=== PATIENT | male | born 1960 | race Caucasian/White ===

== ENCOUNTER 2017-05-10 15:41 | Observation (INO) | payer MEDICARE ==
[2017-05-10 16:08] LABS: BASOPHILS 0.5 % (0-2); EOSINOPHILS 8.5 % (0-7); HEMATOCRIT 41.5 % (42.0-54.0); HEMOGLOBIN 14.4 g/dL (13.5-17.5); IMMATURE GRANULOCYTES 0.1 % (0-5); LYMPHOCYTES 24.5 % (15-50); MCH 31.9 pg (26.0-34.0); MCHC 34.7 g/dL (31.0-37.0); MEAN PLATELET VOLUME 10.9 fL (7.4-10.4); MONOCYTES 8.5 % (2-11); NEUTROPHILS 57.9 % (40-80); PLATELET COUNT 161 10x3/uL (130-400); RBC 4.51 10x6/uL (4.20-6.10); RDW 13.3 % (11.5-14.5); WBC 8.1 10x3/uL (4.8-10.8)
[2017-05-10 16:19] LABS: ALBUMIN 3.6 g/dL (3.4-5.0); ALKALINE PHOSPHATASE 106 U/L (46-116); ALT (SGPT) 38 U/L (10-68); BILIRUBIN - TOTAL 0.55 mg/dL (0.2-1.3); CALC OSMOLALITY 281 mosm/kg (275-300); CALCIUM 8.6 mg/dL (8.5-10.1); CARBON DIOXIDE 26.2 mmol/L (21.0-32.0); CHLORIDE - SERUM 103 mmol/L (98-107); GLUCOSE 153 mg/dL (74-106); POTASSIUM - SERUM 3.7 mmol/L (3.5-5.1); PROTEIN - SERUM 7.3 g/dL (6.4-8.2); SODIUM 139 mmol/L (136-145); UREA NITROGEN 15 mg/dL (7-18); eGFR NON AFRICAN AMERICAN 82 mL/min (90-120)
[2017-05-10 16:30] LABS: CHOL - HDL RATIO 5.5 ratio (2.3-4.9); CHOLESTEROL, TOTAL 138 mg/dL (0-200); CKMB 2.1 U/L (0.0-3.6); CREATINE KINASE 202 UL (21-232); HDL CHOLESTEROL 25 mg/dL (32-96); LDL CHOLESTEROL 66 mg/dL (0-100); LDL-HDL RATIO 2.6 ratio (1.5-3.5); TRIGLYCERIDE 237 mg/dL (30-200)
[2017-05-10 16:43] LABS: TROPONIN-I < 0.017 ng/mL (0.000-0.060)
--- NOTE | 2017-05-10 18:20 | NUR ---
TRANSFER FROM ER BY W/C. EDITHINTED TO ROOM. CALL LIGHT IN REACH. WILL CONT. PLAN OF CARE.
[2017-05-10 18:47] VITALS: BP 105/73
[2017-05-10] MEDS ORDERED: NEXIUM20 MG PO (18:54)
[2017-05-10] MEDS ORDERED: NEURONTIN600 MG PO ×2 (18:55)
[2017-05-10] MEDS ORDERED: ABILIFY10 MG PO (18:57)
[2017-05-10] MEDS ORDERED: MINIPRESS1 MG PO (18:57)
[2017-05-10] MEDS ORDERED: KLONOPIN1 MG PO ×2 (18:58→18:59)
[2017-05-10] MEDS ORDERED: LIPITOR40 MG PO (18:59)
[2017-05-10] MEDS ORDERED: PROPRANOLOL HCL20 MG PO (19:00)
[2017-05-10] MEDS ORDERED: ZOLOFT50 MG PO (19:01)
[2017-05-10] MEDS ORDERED: KEPPRA500 MG PO ×2 (19:02)
--- NOTE | 2017-05-10 19:50 | NUR ---
PT C/O MIDSTERNAL CHEST PAIN, RATES @ 6/10 ON PAIN SCALE. NITRO 0.4 MG SL X1 GIVEN.
[2017-05-10 20:45] VITALS: BP 92/55
--- NOTE | 2017-05-10 21:30 | NUR ---
PT STATES HAVING CHEST PAIN, RATES @ 6/10 ON PAIN SCALE. NITRO 0.4MG SL X1 GIVEN. AFTER 5 MIN PT REPORTS PAIN @ A 2/10 ON PAIN SCALE. WILL MONITOR.
[2017-05-10 22:29] LABS: CKMB 1.3 U/L (0.0-3.6); CREATINE KINASE 152 UL (21-232)
[2017-05-10 22:39] LABS: TROPONIN-I < 0.017 ng/mL (0.000-0.060)
--- NOTE | 2017-05-10 22:47 | NUR ---
PT REPORTS HAVING CHEST PAIN, RATES @ 8/10 ON PAIN SCALE. PT REQIUESTS A "PAIN SHOT". EXPLAINED TO PT HE ONLY HAS NTG ORDERED. PT STATES HE DOESNT FEEL THE NTG IS HELPING. CALL TO DR BARRIOS. ORDER RECEIVED FOR NORCO 7.5/325 MG PO Q4H PRN PAIN. PT UPDATED ON POC AND VERBALIZED UNDERSTANDING.
[2017-05-11] VITALS (7 sets, daily range): BP systolic 92–116; BP diastolic 57–74; BMI 29.4
[2017-05-11 04:51] LABS: CKMB 1.7 U/L (0.0-3.6); CREATINE KINASE 156 UL (21-232); TROPONIN-I < 0.017 ng/mL (0.000-0.060)
[2017-05-11 10:14] LABS: TROPONIN-I < 0.017 ng/mL (0.000-0.060)
[2017-05-11 10:18] LABS: CREATINE KINASE 291 UL (21-232)
--- NOTE | 2017-05-11 10:30 | NUR ---
LEAVING FOR STRESS TEST BY W/C. TELEMETRY SR. IV PATENT. WILL CONT. PLAN OF CARE.
--- NOTE | 2017-05-11 12:24 | NUR ---
ECHO DONE AT BS. WILL MONITOR.
--- NOTE | 2017-05-11 20:30 | NUR ---
LYING QUIETLY ON BEDSIDE ROUNDS, AWAKE AND ALERT, INITIAL ASSESSMENT JUST COMPLETED AND RECORDED PER FLOW SHEET. LEFT FOREARM PIV PATENT WITH NS @ 100 ML/HR, SITE CLEAR OF REDNESS OR EDEMA. REPORTS SOME DISCOMFORT IN CHEST REGION BUT NOT UNBEARABLE. NOTE THAT PT'S AFFECT IS S/W FLAT. ON O2 @ 2L, NO RESPIRATORY DISTRESS NOTED. WILL CONT TO MONITOR.
--- NOTE | 2017-05-12 00:05 | NUR ---
HAD BEEN C/O OF INCREASED PAIN IN CHEST AROUND 2200. GIVEN NORCO 1 TAB PER PRN ORDER, WILL MONITOR FOR AFFECT.
[2017-05-12 03:53] VITALS: BP 108/72
--- NOTE | 2017-05-12 06:23 | NUR ---
UP A SHORT TIME, STATED HE WAS GOING HOME AND WANTED TO TAKE A SHOWER. IV UNHOOKED AND IV SITE COVERED. TOOK SHOWER AND CLEAN CLOTHES PUT ON. HAS DENIED ANY FURTHER CO'S OF PAIN. WILL CONT WITH CURRENT PLAN OF CARE
--- NOTE | 2017-05-12 07:43 | NUR ---
ASSESSMENT DONE. DENIES NEEDS.
[2017-05-12 08:00] VITALS: BP 100/61
--- NOTE | 2017-05-12 09:24 | NUR ---
RESTS IN BED WITH EYES CLOSED. NO S/S DISCOMFORTS NOTED. WILL MONITOR.
--- NOTE | 2017-05-12 12:00 | NUR ---
FOR DISCHARGE: WHEN QUESTIONED PATIENT IF HE WANTED THE FLU SHOT FOR DISCHARGE, HE STATES THAT HE IS COUGHING A LOT AND DOES NOT WANT TO AGGIVATE IT. HE STATES THAT HE WILL FOLLOW UP WITH HIS PRIMARY CARE DOCTOR ON THIS.
--- NOTE | 2017-05-12 12:38 | NUR ---
DC GIVEN TO PT
--- NOTE | 2017-05-12 13:06 | NUR ---
DC HOME PER PERSONAL CAR
--- NOTE | 2017-05-13 12:46 | EC ---
PATIENT:LELIA ROBLERO DATE OF SERVICE: 05/10/17 SEX: M MEDICAL RECORD: [id number] DATE OF : 62 LOCATION:D.M2 D.211 AGE OF PATIENT: 56 ADMISSION DATE: 05/10/17 REFERRING PHYSICIAN: INTERPRETING PHYSICIAN: PADILLA BARRIOS MD ECHOCARDIOGRAM REPORT ECHO CHARGES 4 ECHO COMPLETE CLINICAL DIAGNOSIS: CHEST PAIN/ NAUSEA HX OF SEIZURES ECHOCARDIOGRAPHIC MEASUREMENTS (adult normal given) AC root (d.<3.7cm) 3.9 cm LV Septum d (<1.2 cm> 1.4 cm Valve Excursion 2.3 cm LV Septum (systole) 1.7 cm Left Atria (s.<4.0cm> 3.2 cm LVPW d(<1.2cm) 1.4 cm RV (d.<2.3cm) 3.8 cm LVPW (sytole) 1.7 cm LV diastole(<5.6CM) 5.1 cm MV E-F(>70mm/sec) cm LV systole 3.6 cm LVOT Diameter 2.2 cm MV exc.(>10mm) 2.0 cm Est.ejection fraction (50-75%) % Pericardial Effusion N DOPPLER: LVIT cm/sec A 80.0 cm/sec E 103 cm/sec LA cm/sec RVSP 23 mmHg LVOT 127 cm/sec AOP1/2T m/s Asc. Ao 140 cm/sec RVOT 96 cm/sec RA cm/sec PA 116 cm/sec AV Gradient Peak 7.89 mmHg AV Mean 4.47 mmHg AV Area 3.4 cm MV Gradient Peak 3.75 mmHg MV Mean 1.36 mmHg MV Area cm COMMENTS: Greens Laborer: 2 AMANDA MONTOYA Awning Hanger Helper: 4 Dr. Barrios TAPE# PACS DATE OF SERVICE: 05/12/2017 Transthoracic Echocardiogram FINDINGS: 1. Left ventricle shows evidence of mild concentric left ventricular hypertrophy with normal inflow characteristics. The ejection fraction is 65%. There is no regional wall motion abnormalities. 2. The mitral valve has normal structure, normal function without significant regurgitation. ECHOCARDIOGRAM REPORT [id number] LELIA ROBLERO 3. The right ventricle is moderately dilated with normal function. 4. The aortic valve is structurally normal and normal function. 5. The left atrium has normal size and normal function. 6. The pericardium appears to be normal without pericardial effusion. 7. Pulmonic valve is grossly normal. 8. The right atrium has normal size and normal function. 9. The tricuspid valve has mild tricuspid regurgitation with normal right ventricular pressures. In conclusion, the patient has evidence of mild hypertensive heart disease without significant changes in function or valvular status. TRANSINT:[id number] Voice Confirmation ID: [id number] DOCUMENT ID: [id number] PADILLA BARRIOS MD at 1246 CC: [id number] DICTATION DATE: 05/12/17 075 SWEAT BAND SEWER: 05/12/17 0922 DIS IN 05/12/17 [facility] [address] [place] [address]
--- NOTE | 2017-05-13 12:49 | ST ---
PATIENT:LELIA ROBLERO MEDICAL RECORD: [id number] SEX: M [facility] ORDER #: ADMISSION DATE: 05/10/17 AGE OF PATIENT: 56 REFERRING PHYSICIAN: INTERPRETING PHYSICIAN: PADILLA BARRIOS MD DATE OF SERVICE: 05/11/2017 Lexiscan Stress PROCEDURE IN DETAIL: The patient brought to the stress lab where he was placed in supine position on the stress table. The patient underwent a standard Lexiscan stress test without any difficulty where a 12 mCi of sestamibi was injected after appropriate Lexiscan protocol at rest and stress. The stress was 31.1 mCi sestamibi. The gated and SPECT imaging showed that the patient has preserved LV systolic function. No evidence of ischemia. The ejection fraction is normal at 59% and there were no evidences of photopenia or ischemia. This is a negative stress test for inducible ischemia. TRANSINT:[id number] Voice Confirmation ID: [id number] DOCUMENT ID: [id number] PADILLA BARRIOS MD at 1249 CC: [id number] DICTATION DATE: 05/11/17 1600 LIMOUSINE DRIVER: 05/12/17 0105 DIS IN 05/12/17 [facility] [address] [place] [address]
== END 2017-05-12 13:07 | disposition home or self-care (01) ==
LOC: D.ER 15:41 → D.M2 17:53 → OBSVTIME 17:53 → D.M2 05-12 13:07
PROVIDERS: Emergency Medicine; ADMIT Family Medicine
DX: R07.9 Chest pain, unspecified (principal); J44.9 Chronic obstructive pulmonary disease, unspecified; F41.9 Anxiety disorder, unspecified; F32.9 Major depressive disorder, single episode, unspecified

== ENCOUNTER 2017-06-02 17:06 | Emergency (ER) | payer MEDICARE ==
[2017-05-11 13:13] VITALS: BMI 29.4
[~2017-06-02 17:06] MED LIST: ABILIFY10 MG PO; KEPPRA500 MG PO; KLONOPIN1 MG PO; LIPITOR40 MG PO; MINIPRESS1 MG PO; NEURONTIN600 MG PO; NEXIUM20 MG PO; PROPRANOLOL HCL20 MG PO; ZOLOFT50 MG PO
[2017-06-02 18:39] LABS: BASOPHILS 0.3 % (0-2); HEMATOCRIT 43.6 % (42.0-54.0); HEMOGLOBIN 15.1 g/dL (13.5-17.5); IMMATURE GRANULOCYTES 0.3 % (0-5); LYMPHOCYTES 15.9 % (15-50); MCH 31.7 pg (26.0-34.0); MCHC 34.6 g/dL (31.0-37.0); MCV 91.6 fL (80.0-100.0); MEAN PLATELET VOLUME 10.5 fL (7.4-10.4); MONOCYTES 6.6 % (2-11); NEUTROPHILS 72.9 % (40-80); PLATELET COUNT 152 10x3/uL (130-400); RBC 4.76 10x6/uL (4.20-6.10); RDW 13.3 % (11.5-14.5); WBC 12.1 10x3/uL (4.8-10.8)
[2017-06-02 18:52] LABS: ALBUMIN 4.1 g/dL (3.4-5.0); ALKALINE PHOSPHATASE 106 U/L (46-116); ALT (SGPT) 63 U/L (10-68); CALC OSMOLALITY 278 mosm/kg (275-300); CALCIUM 9.1 mg/dL (8.5-10.1); CARBON DIOXIDE 24.9 mmol/L (21.0-32.0); CHLORIDE - SERUM 103 mmol/L (98-107); CREATININE - SERUM 0.8 mg/dL (0.6-1.3); POTASSIUM - SERUM 3.4 mmol/L (3.5-5.1); PROTEIN - SERUM 8.1 g/dL (6.4-8.2); SODIUM 140 mmol/L (136-145); UREA NITROGEN 12 mg/dL (7-18); eGFR NON AFRICAN AMERICAN > 90 mL/min (90-120)
[2017-06-02 18:56] LABS: GLUCOSE 94 mg/dL (74-106)
[2017-06-02 19:03] LABS: CKMB 1.8 U/L (0.0-3.6); CREATINE KINASE 157 UL (21-232)
[2017-06-02 19:07] LABS: TROPONIN-I < 0.017 ng/mL (0.000-0.060)
== END 2017-06-02 20:40 | disposition home or self-care (01) ==
LOC: D.ER 17:06
PROVIDERS: Emergency Medicine
DX: J06.9 Acute upper respiratory infection, unspecified (principal); J40 Bronchitis, not specified as acute or chronic; I44.7 Left bundle-branch block, unspecified; F17.200 Nicotine dependence, unspecified, uncomplicated

== ENCOUNTER 2017-07-13 14:04 | Outpatient (CLI) | payer MEDICARE, MEDICAID ==
[~2017-07-13] VITALS: Ht 180.3 cm; Wt 94.2 kg
--- NOTE | ~2017-07-13 | HEMODYNAMI ---
PATIENT:LELIA ROBLERO MEDICAL RECORD: [id number] : 62 LOCATION[facility] [id number] ADMISSION DATE: 07/13/17 Generatedon:07/14/201710:01 Patient name: LELIA ROBLERO Patient #: [id number] SSN: [id number] : 1960 Date of study: 07/14/2017 Page: Of Hemodynamic Procedure Report Patient Data Patient Demographics Procedure consent was obtained First Name: LELIA Gender: Male Last Name: OSBALDO : 1960 Patient #: [id number] Age: 57 year(s) Race: SSN: [id number] Additional ID: [id number] Contact details Address: [address] [place] [address] [place]: [place] [facility] [place] [place]: [address] Admission Admission Data Admission Date: 07/13/2017 Admission Time: 16:22 Arrival Date: 07/07/2017 Arrival Time: 16:22 Admit Source: Other Insurance Payor: Medicare Room #: D.2119 Lab Results Lab Result Date: 07/14/2017 Lab Result Time: 0:00 Biochemistry Name Units Result Min Max BUN mg/dl 8 --(*---)-- 7 18 Creatinine mg/dl 0.9 --(-*--)-- 0.6 1.3 CBC Name Units Result Min Max Hemoglobin g/dl 14.4 --(*---)-- 13.5 17.5 Procedure Procedure Types Cath Procedure Diagnostic Procedure LHC LH w/Coronaries FFR/IVUS Intra-Coronary IVUS Initial PCI Procedure Coronary Stent Coronary Stent Initial Miscellaneous Procedures Moderate Sedation up to 30 minutes Procedure Description Procedure Date Procedure Date: 07/14/2017 Procedure Start Time: 9:44 Procedure End Time: 9:58 Procedure Staff Name Function Epifanio Holliday MD Performing Physician Jovana Pereira RT Monitor Basilia Palmer RT Scrub Raymundo Elizabeth RN Nurse Belén Phipps RN Nurse Procedure Data Cath Procedure Fluoroscopy Diagnostic fluoroscopy Total fluoroscopy Time: 3.6 time: 3.6 min min Diagnostic fluoroscopy Total fluoroscopy dose: 646 dose: 646 mGy mGy Contrast Material Contrast Material Type Amount (ml) Isovue 300 86 Entry Location Entry Primary Successful Side Size Upsize Upsize Entry Closure Succes sful Closure Location (Fr) 1 (Fr) 2 (Fr) Remarks Device Remarks Radial Right 6 Fr Exoseal artery Short Estimated blood loss: 5 ml Diagnostic catheters Device Type Used For End Catheter Placement DIAGNOSTIC Irene 110cm 5 Multi-vessel Fr catheter (123333) Angiography Procedure Complications No complications Procedure Medications Medication Administration Route Dosage 0.9% NaCl I.V. 100 ml/hr Oxygen NC 2 l/min Lidocaine 2% added to field 20 Heparin Flush Bag added to field 2 bags (1000units/500ml NS) Radial Cocktail added to field 1 syringe (Verapomil 2mg/Nitro 400mcg/Heparin 1500units) Plavix P.O. 75 mg Fentanyl I.V. 100 mcg Versed I.V. 2 mg Versed I.V. 1 mg Fentanyl I.V. 50 mcg Versed I.V. 1 mg Fentanyl I.V. 50 mcg Heparin Bolus I.V. 4000 units Hemodynamics Rest HGB: 14.4 (g/dl) Heart Rate: 61 (bpm) Pressure Samples Time Site Value (mmHg) Purpose Heart Use Rate(bpm) 9:46 LV 89/76,88 Snapshot 64 Snapshots Pre Cath Intra NCS Post Cath Vital Signs Time Heart Resp SPO2 NIBP Rhythm Pain Sedation Rate (ipm) (%) (mmHg) Status Level (bpm) 9:15:25 66 16 95 121/82(95) NSR 0 (11) 10(A) , No pain 9:19:29 63 14 100 113/82(95) NSR 0 (11) 10(A) , No pain 9:23:32 60 20 100 108/76(85) NSR 0 (11) 10(A) , No pain 9:27:34 60 17 98 101/74(84) NSR 0 (11) 10(A) , No pain 9:31:32 59 21 94 114/77(90) NSR 0 (11) 10(A) , No pain 9:35:40 56 17 93 107/66(80) NSR 0 (11) 10(A) , No pain 9:39:43 63 16 95 102/71(82) NSR 0 (11) 9(A) , No pain 9:43:45 61 14 96 105/72(84) NSR 0 (11) 9(A) , No pain 9:47:51 73 19 96 99/63(78) NSR 0 (11) 9(A) , No pain 9:51:57 65 19 96 97/58(74) NSR 0 (11) 10(A) , No pain 9:55:58 73 14 98 100/64(80) NSR 0 (11) 10(A) , No pain Medications Time Medication Route Dose Verified Delivered Reason Notes Effectiveness by by 9:06:40 0.9% NaCl I.V. 100 Epifanio Belén used for ml/hr Miya Phipps RN procedure 9:06:48 Oxygen NC 2 l/min Epifanio Belén Per physician Miya Phipps RN 9:07:01 Lidocaine 2% added 20ml Epifanioronni Godfrey for local to vial Miya Holliday MD anesthetic field 9:07:08 Heparin Flush added 2 bags Epifanio Godfrey used for Bag to Miya Holliday MD procedure (1000units/500ml field NS) 9:16:14 Radial Cocktail added 1 Epifanio Epifanio for (Verapomil to syringe Miya Holliday MD vasodilation 2mg/Nitro field 400mcg/Heparin 1500units) 9:24:32 Plavix P.O. 75 mg Epifanio Melissa for Miya Phipps RN antiplatelet therapy 9:37:22 Fentanyl I.V. 100 mcg Epifanio Melissa for sedation Miya Phipps RN 9:37:31 Versed I.V. 2 mg Epifanio Solisfany for sedation Myia Phipps RN 9:40:02 Versed I.V. 1 mg Epifanio Solisfany for sedation Miya Phipps RN 9:40:12 Fentanyl I.V. 50 mcg Epifanio Solisfany for sedation Miya Phipps RN 9:42:26 Versed I.V. 1 mg Epifanio Solisfany for sedation Miya Phipps RN 9:42:31 Heparin Bolus I.V. 4000 Epifanio Solisfany for verif ied units Miya Phipps RN anticoagulation by dr. holliday 9:43:32 Fentanyl I.V. 50 mcg Epifanio Melissa for sedation Miya Phipps machine tank operator Log Time Note 8:54:58 Jovana Pereira RT(R) sent for patient. Start room use. 8:54:59 Time tracking: Regular hours 8:55:03 Plan of Care:Hemodynamics will remain stable., Cardiac rhythm will remain stable., Comfort level will be maintained., Respiratory function will remain adequate., Patient/ family verbilizes understanding of procedure., Procedure tolerated without complication., Recovers from procedure without complications.. 8:55:51 Informed consent obtained and on chart 8:56:50 Admit Source: Other 8:56:56 Insurance Payor : Medicare 8:57:02 Arrival Date: 07/07/2017 4:22:00 PM 9:06:40 0.9% NaCl 100 ml/hr I.V. was administered by Belén Phipps RN; used for procedure; 9:06:48 Oxygen 2 l/min NC was administered by Belén Phipps RN; Per physician; 9:07:01 Lidocaine 2% 20ml vial added to field was administered by Epifanio Holliday MD; for local anesthetic; 9:07:08 Heparin Flush Bag (1000units/500ml NS) 2 bags added to field was administered by Epifanio Holliday MD; used for procedure; 9:14:26 Vital chart was started 9:16:14 Radial Cocktail (Verapomil 2mg/Nitro 400mcg/Heparin 1500units) 1 syringe added to field was administered by Epifanio Holliday MD; for vasodilation; 9:20:56 Lab Result : Creatinine 0.9 mg/dl 9:20:56 Lab Result : BUN 8 mg/dl 9:20:57 Lab Result : Hemoglobin 14.4 g/dl 9:21:53 Patient received from Med II to CCL 2 Alert and oriented. Tansferred to table in Supine position. 9:21:54 Warm blankets applied, and elliot hugger turned on for patient comfort. 9:21:54 Correct patient and procedure confirmed by team. 9:21:55 ECG and BP/O2 sat monitors applied to patient. 9:21:56 Baseline sample Acquired. 9:22:00 Rhythm: sinus rhythm 9:22:01 Full Disclosure recording started 9:23:17 H&P Date Dictated: 07/14/2017 New H&P dictated by physician.. 9:23:19 Pre-procedure instructions explained to patient. 9:23:19 Pre-op teaching completed and patient verbalized understanding. 9:23:21 Family unavailable. 9:23:23 Patient NPO since Midnight. 9:23:30 Is the patient allergic to Iodine/contrast media? No. 9:23:31 Was the patient premedicated? No 9:23:40 Is patient on blood thinner?Yes 9:23:42 ACC The patient was administered the following blood thiners within the last 24 hours: ACCPlavix 9:23:44 Patient diabetic? No. 9:23:47 Previous problem with sedation/anesthesia? No ? 9:23:49 Snore? Yes 9:23:50 Sleep apnea? No 9:23:51 Deviated septum? No 9:23:51 Opens mouth fully? Yes 9:23:52 Sticks out tongue? Yes 9:23:54 Airway obstruction? No ? 9:23:58 Dentures? No ? 9:24:01 Pre procedure: right dorsailis pedis pulse 2+ Normal; easily identifiable; not easily obliterated 9:24:04 Pre procedure: left dorsailis pedis pulse 2+ Normal; easily identifiable; not easily obliterated 9:24:07 Patient pain scale 5/10 ?. 9:24:15 Lab results completed and on chart. 9:24:19 Right Radial & Right Groin area was prepped with chlora-prep and draped in sterile fashion 9:24:19 Alarms reviewed by R. N. 9:24:20 Sharps counted by scrub and verified by R.N. 9:24:32 Plavix 75 mg P.O. was administered by Belén Phipps RN; for antiplatelet therapy; 9:31:16 Zero performed for pressure channel P1 9:36:46 Physician arrived 9:36:46 --------ALL STOP TIME OUT------ 9:36:47 Final Timeout: patient, procedure, and site verified with staff and physician. All members of the team are in agreement. 9:36:50 Right Radial & Right Groin site verified by team. 9:36:56 Physical assessment completed. ASA score P 2 - A patient with mild systemic disease as per Epifanio Holliday MD. 9:37:00 Sedation plan: IV Moderate Sedation Medication:Versed, Fentanyl 9:37:06 Use device set Radial Dx 9:37:07 ACIST Syringe (91941) opened to sterile field. 9:37:07 Medline Cath Pack ([id number]) opened to sterile field. 9:37:08 Bag Decanter (2002S) opened to sterile field. 9:37:08 SHEATH 6FR Slender ([id number]) opened to sterile field. 9:37:09 DIAGNOSTIC WIRE .035 260cm J wire (436725) opened to sterile field. 9:37:09 ACIST Hand Control (09758) opened to sterile field. 9:37:10 ACIST Manifold (51846) opened to sterile field. 9:37:10 Tegaderm 4 x 4 (1626W) opened to sterile field. 9:37:11 MBrace Wrist Support ([id number]) opened to sterile field. 9:37:22 Fentanyl 100 mcg I.V. was administered by Belén Phipps RN; for sedation; 9:37:31 Versed 2 mg I.V. was administered by Belén Phipps RN; for sedation; 9:40:02 Versed 1 mg I.V. was administered by Belén Phipps RN; for sedation; 9:40:12 Fentanyl 50 mcg I.V. was administered by Belén Phipps RN; for sedation; 9:42:26 Versed 1 mg I.V. was administered by Belén Phipps RN; for sedation; 9:42:31 Heparin Bolus 4000 units I.V. was administered by Belén Phipps RN; for anticoagulation; verified by dr. holliday 9:43:32 Fentanyl 50 mcg I.V. was administered by Belén Phipps RN; for sedation; 9:43:56 Procedure started. 9:44:00 Local anesthetic to right radial artery with Lidocaine 2% by Epifanio Holliday MD.INITIAL ACCESS ONLY 9:44:36 A 6 Fr Short sheath was inserted into the Right Radial artery 9:45:10 A DIAGNOSTIC Irene 110cm 5 Fr catheter (136946) was advanced over the wire and used for Multi-vessel Angiography. 9:46:23 LV hemodynamics recorded. 9:46:24 LV gram done using DAUGHERTY 9:46:28 Injector settings: Ml/sec: 5, Volume: 15, 9:46:33 EF : 50 % 9:47:00 LCA angiography performed. 9:47:03 Injector settings: Ml/sec: 3, Volume: 6, 9:48:20 RCA angiography performed. 9:48:22 Injector settings: Ml/sec: 3, Volume: 6, 9:48:26 Catheter removed. 9:48:27 Proceeding to intervention. 9:48:46 INFLATOR Merit BasixCompak (WS5888) opened to sterile field. 9:49:41 WHISPER 190cm wire ([id number]) opened to sterile field. 9:51:03 Victoria [employer] [place] IVUS Catheter (58312U) opened to sterile field. 9:51:03 GUIDE 6FR XBLAD 3.5 catheter ([id number]) opened to sterile field. 9:51:17 6 Fr xblad 3.5 guide catheter was inserted over the wire 9:51:22 whisper wire advanced. 9:51:23 Wire advanced across lesion. 9:51:25 IVUS catheter advanced over wire. 9:52:23 IVUS pass to LAD lesion performed. 9:54:19 IVUS catheter removed over wire. 9:55:21 Inflation Number: 1 A INTEGRITY RX 3.0 x 22 stent ([id number]) was prepped and advanced across the Prox LAD. The stent was deployed at 17 EMILIA for 0:10 (min:sec). 9:56:08 Stent catheter was removed intact over wire. 9:56:09 Wire removed. 9:56:09 Guide catheter removed. 9:56:21 EXOSEAL 6Fr (EX600) opened to sterile field. 9:56:28 Sheath removed intact; hemostasis achieved with Exoseal to the Right Radial artery. 9:56:30 Procedure ended.(Physican Out) 9:56:44 Fluoroscopy time 03.60 minutes. 9:56:48 Fluoroscopy dose: 646 mGy 9:56:48 Flurop Dose total: 646 9:56:51 Contrast amount:Isovue 300 86ml. 9:56:53 Sharps counted by scrub and verified by R.N. 9:56:54 Insertion/operative site no bleeding no hematoma. 9:56:58 TR band inflated with 10cc of air. 9:57:02 Post right radial artery:stable 9:57:25 Post Procedure Pulses reassessed and unchanged 9:57:27 Post procedure rhythm: unchanged. 9:57:29 Estimated blood loss: 5 ml 9:57:31 Post procedure instruction explained to patient.Patient verbalizes understanding. 9:57:31 Patient needs reinforcement of post procedure teaching. 9:57:55 Procedure type changed to Cath procedure, Diagnostic procedure, LHC, LHC w/Coronaries, FFR/IVUS, Intra-Coronary IVUS Initial, PCI procedure, Coronary Stent, Coronary Stent Initial, Miscellaneous Procedures, Moderate Sedation up to 30 minutes 9:57:56 Procedure and supply charges have been captured, reviewed, submitted and are correct. 9:58:01 Procedure Complication : No complications 9:58:02 Vital chart was stopped 9:58:03 See physician's report for complete and final results. 9:58:06 Report given to [facility]. 9:58:09 Patient transfered to [facility] with Stretcher. 9:58:10 Procedure ended. 9:58:10 Full Disclosure recording stopped 9:58:31 ACC-PCI Only Patient was given prescriptions, or instructed by Epifanio Holliday MD to start/continue the following medications upon discharge: Plavix 9:58:33 End room use (Document Last) Intervention Summary Intervention Notes Time ActionType Lesion and Equipment Action# Pressure Duration Attributes Used 9:55:21 Place stent Prox LAD INTEGRITY RX 1 17 00:10 3.0 x 22 stent ([id number]) Device Usage Item Name Manufacture Quantity Catalog Hospital Part Current Minima l Lot# / Number Charge Number Stock Stock Serial# Code ACIST Acist 1 14583 801892 049785 760058 20 Syringe TenKod (72520) Systems Inc Medline Cath Cardinal 1 [id number] 383168 06623 345855 5 Pack Health ([id number]) Bag Decanter Microtek 1 2001S 192102 20015 786315 5 () Medical Inc. SHEATH 6FR Terumo 1 [id number] 078391 787051 431726 40 Slender ([id number]) DIAGNOSTIC St Petros 1 665066 679217 261504 454492 30 WIRE .035 260cm J wire (451719) ACIST Hand Acist 1 49364 058348 187822 566293 5 Control Medical (66665) Systems Inc ACIST Acist 1 37420 456202 207420 639214 5 Manifold Medical (97984) Systems Inc Tegaderm 4 x 3M 1 1626W 458167 832001 290445 5 4 (1626W) MBrace Wrist Advanced 1 140-0250-00 619168 30120 290521 5 Support Vascular (333935930) Dynamics DIAGNOSTIC Terumo 1 40-0471 132513 276755 659219 5 Irene 110cm 5 Fr catheter (530741) INFLATOR Merit 1 RM8883 669448 308293 486260 15 [facility] Medical BasixCompak (ZK3062) WHISPER Chin 1 [id number] 243667 011430 476118 5 190cm wire Vascular (4025522AW) Victoria Victoria 1 23517S 726862 068407 679085 8 [employer] [place] [employer] [place] IVUS Catheter (70607E) GUIDE 6FR Cardinal 1 [id number] 552034 092293 930044 10 XBLAD 3.5 Health catheter (10649349) INTEGRITY RX Medtronic 1 [id number] 481175 775098 979272 5 [id number] 3.0 x 22 stent ([id number]) EXOSEAL 6Fr Cardinal 1 EX600 401795 101782 224916 10 (EX600) Health Signature Audit Hall Stage Time Signature Unsigned Intra-Procedure 07/14/2017 Jovana Pereira 10:01:12 AM RT(R) Signatures Monitor : Jovana Pereira RT Signature : Date : Time : [facility] [address] [place] [address]
--- NOTE | ~2017-07-13 | HEMODYNAMI ---
PATIENT:LELIA ROBLERO MEDICAL RECORD: [id number] : 62 LOCATION:[address] ADMISSION DATE: 07/13/17 Generatedon:07/15/201712:21 Patient name: LELIA ROBLERO Patient #: [id number] SSN: [id number] : 1960 Date of study: 07/15/2017 Page: Of Hemodynamic Procedure Report Patient Data Patient Demographics Procedure consent was obtained First Name: LELIA Gender: Male Last Name: OSBALDO : 1960 Patient #: [id number] Age: 57 year(s) Race: SSN: [id number] Additional ID: [id number] Contact details Address: [address] [place] [address] State: [place] City: [facility] Zip code: [address] Admission Admission Data Admission Date: 07/13/2017 Admission Time: 16:22 Arrival Date: 07/07/2017 Arrival Time: 16:22 Admit Source: Other Insurance Payor: Medicare Room #: D.2119 Lab Results Lab Result Date: 07/14/2017 Lab Result Time: 0:00 Biochemistry Name Units Result Min Max BUN mg/dl 8 --(*---)-- 7 18 Creatinine mg/dl 0.9 --(-*--)-- 0.6 1.3 CBC Name Units Result Min Max Hemoglobin g/dl 14.4 --(*---)-- 13.5 17.5 Procedure Procedure Types Cath Procedure PCI Procedure Coronary Stent Coronary Stent Initial Miscellaneous Procedures Moderate Sedation up to 30 minutes Procedure Description Procedure Date Procedure Date: 07/15/2017 Procedure Start Time: 12:02 Procedure End Time: 12:19 Procedure Staff Name Function Epifanio Holliday MD Performing Physician David Fields RN Nurse Rakan Ramsey RT Monitor Dorothy Cortez RT Scrub Procedure Data Cath Procedure Fluoroscopy Diagnostic fluoroscopy Total fluoroscopy Time: 6.9 time: 6.9 min min Diagnostic fluoroscopy Total fluoroscopy dose: 783 dose: 783 mGy mGy Contrast Material Contrast Material Type Amount (ml) Isovue 300 104 Entry Location Entry Primary Successful Side Size Upsize Upsize Entry Closure Succes sful Closure Location (Fr) 1 (Fr) 2 (Fr) Remarks Device Remarks Femoral Right 6 Fr Exoseal artery Short Estimated blood loss: 10 ml Procedure Complications No complications Procedure Medications Medication Administration Route Dosage 0.9% NaCl I.V. 100 ml/hr Oxygen NC 2 l/min Heparin Flush Bag added to field 2 bags (1000units/500ml NS) Lidocaine 2% added to field 20 Versed I.V. 1 mg Fentanyl I.V. 50 mcg Heparin Bolus I.V. 4000 units Versed I.V. 1 mg Fentanyl I.V. 50 mcg Hemodynamics Rest Heart Rate: 60 (bpm) Snapshots Pre Cath Intra NCS Post Cath Vital Signs Time Heart Resp SPO2 etCO2 NIBP Rhythm Pain Sedation Rate (ipm) (%) (mmHg) (mmHg) Status Level (bpm) 11:52:50 63 17 100 0 111/76(92) NSR 0 (11) 10(A) , No pain 11:57:24 61 15 100 14.9 114/79(91) NSR 0 (11) 10(A) , No pain 12:02:03 60 19 99 17.9 111/72(86) NSR 0 (11) 10(A) , No pain 12:06:44 65 16 98 14.9 103/68(82) NSR 0 (11) 10(A) , No pain 12:11:18 63 14 97 8.9 108/73(86) NSR 0 (11) 10(A) , No pain 12:15:57 62 13 98 28.4 109/72(87) NSR 0 (11) 10(A) , No pain Medications Time Medication Route Dose Verified Delivered Reason Notes Effectiveness by by 12:00:28 0.9% NaCl I.V. 100 David David Per physician ml/hr Diamond Fields RN RN 12:00:40 Oxygen NC 2 David David Per physician l/min Diamond Fields RN RN 12:00:55 Heparin Flush added 2 David David used for Bag to bags Diamond Fields procedure (1000units/500ml [facility] RN RN NS) 12:01:08 Lidocaine 2% added 20ml David David for local to vial Diamond Fields anesthetic field RN RN 12:01:25 Versed I.V. 1 mg David David for sedation Diamond Fields RN RN 12:01:37 Fentanyl I.V. 50 David David for sedation mcg Diamond Fields RN RN 12:05:27 Heparin Bolus I.V. 4000 David David for units Diamond Fields anticoagulation RN RN 12:05:35 Versed I.V. 1 mg David David for sedation Diamond Fields RN RN 12:18:07 Fentanyl I.V. 50 David David for sedation mcg Diamond Fields RN rn practitioner Log Time Note 11:33:06 Yuki Counts RT(R) sent for patient. Start room use. 11:33:07 Time tracking: Regular hours 11:33:11 Plan of Care:Hemodynamics will remain stable., Cardiac rhythm will remain stable., Comfort level will be maintained., Respiratory function will remain adequate., Patient/ family verbilizes understanding of procedure., Procedure tolerated without complication., Recovers from procedure without complications.. 11:46:41 Patient received from PCU to CCL 1 Alert and oriented. Tansferred to table in Supine position. 11:46:42 Warm blankets applied, and elliot hugger turned on for patient comfort. 11:46:43 Correct patient and procedure confirmed by team. 11:46:44 Signed procedure consent form obtained from patient. 11:46:45 ECG and BP/O2 sat monitors applied to patient. 11:52:02 Vital chart was started 11:52:07 Rhythm: sinus rhythm 11:52:09 Full Disclosure recording started 11:52:29 H&P Date Dictated: 07/14/2017 Within 30 days and on chart., H&P Addendum completed by physician on day of procedure. (MUST COMPLETE FOR ALL OUTPATIENTS). 11:52:31 Pre-procedure instructions explained to patient. 11:52:31 Pre-op teaching completed and patient verbalized understanding. 11:52:33 Family in waiting room. 11:52:35 Patient NPO since Midnight. 11:53:17 Is the patient allergic to Iodine/contrast media? No. 11:53:19 Is patient on blood thinner?Yes 11:53:21 ACC The patient was administered the following blood thiners within the last 24 hours: ACCAspirin, ACCPlavix 11:53:23 Patient diabetic? No. 11:53:26 Previous problem with sedation/anesthesia? No ? 11:53:27 Snore? Yes 11:53:28 Sleep apnea? Yes 11:53:30 Deviated septum? No 11:53:31 Opens mouth fully? Yes 11:53:32 Sticks out tongue? Yes 11:53:33 Airway obstruction? No ? 11:53:35 Dentures? No ? 11:53:38 Pre procedure: right dorsailis pedis pulse 2+ Normal; easily identifiable; not easily obliterated 11:53:40 Patient pain scale 0/10 ?. 11:56:29 IV left hand D/C'd due to infiltration. 11:56:40 IV started by David Fields RN inleft forearm with a 20 gauge IV catheter with 0.9% NaCl at KVO. 11:56:43 Lab results completed and on chart. 11:56:47 Right groin area was prepped with chlora-prep and draped in sterile fashion 11:56:48 Alarms reviewed by R. N. 11:56:48 Sharps counted by scrub and verified by R.N. 11:56:56 Use device set CATH PACK 11:57:01 Use device set TAUTH PCI 11:57:02 ACIST Syringe (58708) opened to sterile field. 11:57:03 ACIST Hand Control (38630) opened to sterile field. 11:57:03 ACIST Manifold (34325) opened to sterile field. 11:57:04 Medline Cath Pack ([id number]) opened to sterile field. 11:57:04 Bag Decanter (2002S) opened to sterile field. 11:57:05 DIAGNOSTIC WIRE .035 260cm J wire (040863) opened to sterile field. 11:57:06 INFLATOR Merit BasixCompak (XL0615) opened to sterile field. 11:57:07 SHEATH 6FR [place] (GSK711) opened to sterile field. 11:59:37 Final Timeout: patient, procedure, and site verified with staff and physician. All members of the team are in agreement. 11:59:39 Right groin site verified by team. 11:59:42 Physical assessment completed. ASA score P 2 - A patient with mild systemic disease as per Epifanio Holliday MD. 11:59:44 Sedation plan: IV Moderate Sedation Medication:Versed, Fentanyl 11:59:58 IV CATHETER 20g opened to sterile field. 12:00:20 Zero performed for pressure channel P1 12:00:28 0.9% NaCl 100 ml/hr I.V. was administered by David Fields RN; Per physician; 12:00:40 Oxygen 2 l/min NC was administered by David Fields RN; Per physician; 12:00:55 Heparin Flush Bag (1000units/500ml NS) 2 bags added to field was administered by David Fields RN; used for procedure; 12:01:08 Lidocaine 2% 20ml vial added to field was administered by David Fields RN; for local anesthetic; 12:01:16 GUIDE 6FR XBLAD 3.5 catheter ([id number]) opened to sterile field. 12:01:25 Versed 1 mg I.V. was administered by David Fields RN; for sedation; 12:01:29 CHOICE PT Extra Support 182cm wire ([id number]) opened to sterile field. 12:01:37 Fentanyl 50 mcg I.V. was administered by David Fields RN; for sedation; 12:01:43 Procedure started. 12:01:48 Baseline sample Acquired. 12:02:06 Local anesthetic to right femoral artery with Lidocaine 2% by Epifanio Holliday MD.INITIAL ACCESS ONLY 12:03:14 A 6 Fr Short sheath was inserted into the Right Femoral artery 12:03:22 6 Fr xblad 3.5 guide catheter was inserted over the wire 12:03:27 choice pt wire advanced. 12:05:27 Heparin Bolus 4000 units I.V. was administered by David Fields RN; for anticoagulation; 12:05:35 Versed 1 mg I.V. was administered by David Fields RN; for sedation; 12:06:43 Wire advanced across lesion. 12:07:05 Inflation Number: 1 A INTEGRITY RX 3.0 x 15 stent ([id number]) was prepped and advanced across the Mid CX. The stent was deployed at 13 EMILIA for 0:10 (min:sec). 12:08:52 Stent catheter was removed intact over wire. 12:08:54 Wire removed. 12:09:11 GUIDE 6FR XB 4.0 catheter ([id number]) opened to sterile field. 12:09:33 6 Fr xb 4 guide catheter was inserted over the wire 12:11:02 choice pt wire advanced. 12:13:51 Wire advanced across lesion. 12:14:00 Inflation number: 2 A EUPHORA 2.0 x 15 Balloon ([id number]) was prepped and advanced across the Mid CX, then inflated to 17 EMILIA for 0:10 (min:sec). 12:14:27 Balloon removed over the wire. 12:15:46 Inflation Number: 3 A INTEGRITY RX 2.5 x 08 stent ([id number]) was prepped and advanced across the Mid CX. The stent was deployed at 11 EMILIA for 0:10 (min:sec). 12:16:31 Inflation number: 4 The stent balloon was then re-inflated across the Mid CX to 17 EMILIA for 0:10 (min:sec). 12:16:44 Stent catheter was removed intact over wire. 12:16:45 Wire removed. 12:16:45 Guide catheter removed. 12:16:54 EXOSEAL 6Fr (EX600) opened to sterile field. 12:17:04 Sheath removed intact; hemostasis achieved with Exoseal to the Right Femoral artery. 12:17:06 Procedure ended.(Physican Out) 12:17:27 Fluoroscopy time 06.90 minutes. 12:17:30 Fluoroscopy dose: 783 mGy 12:17:30 Flurop Dose total: 783 12:17:37 Contrast amount:Isovue 300 104ml. 12:17:38 Sharps counted by scrub and verified by R.N. 12:18:05 Insertion/operative site no bleeding no hematoma. 12:18:07 Fentanyl 50 mcg I.V. was administered by David Fields RN; for sedation; 12:18:07 Post-op/insertion site Right Femoral artery dressed using a 4 x 4 and Tegaderm. 12:18:10 Post right femoral artery:stable, soft, clean and dry 12:18:12 Post Procedure Pulses reassessed and unchanged 12:18:14 Post-procedure physical assessment completed. ASA score P 2 - A patient with mild systemic disease as per Epifanio Holliday MD. 12:18:41 Post procedure rhythm: unchanged. 12:18:44 Estimated blood loss: 10 ml 12:18:46 Post procedure instruction explained to patient.Patient verbalizes understanding. 12:18:46 Patient needs reinforcement of post procedure teaching. 12:19:04 Procedure type changed to Cath procedure, PCI procedure, Coronary Stent, Coronary Stent Initial, Miscellaneous Procedures, Moderate Sedation up to 30 minutes 12:19:39 Procedure and supply charges have been captured, reviewed, submitted and are correct. 12:19:41 Procedure Complication : No complications 12:19:44 Vital chart was stopped 12:19:44 See physician's report for complete and final results. 12:19:47 Report given to PCU. 12:19:49 Patient transfered to PCU with Stretcher. 12:19:51 Procedure ended. 12:19:51 Full Disclosure recording stopped 12:19:54 End room use (Document Last) Intervention Summary Intervention Notes Time ActionType Lesion and Equipment Action# Pressure Duration Attributes Used 12:07:05 Place stent Mid CX INTEGRITY RX 1 13 00:10 3.0 x 15 stent ([id number]) 12:14:00 Inflate Mid CX EUPHORA 2.0 2 17 00:10 balloon x 15 Balloon ([id number]) 12:15:46 Place stent Mid CX INTEGRITY RX 3 11 00:10 2.5 x 08 stent ([id number]) 12:16:31 Reinflate Mid CX INTEGRITY RX 4 17 00:10 stent 2.5 x 08 balloon stent ([id number]) Device Usage Item Name Manufacture Quantity Catalog Number Hospital Part Current Mini [facility] Lot# / Charge Number Stock Stock Serial# Code ACIST Acist 1 18038 891936 827432 355831 20 Syringe Medical (09549) Systems Inc ACIST Hand Acist 1 47815 421970 021627 420568 5 Control Medical (60479) Systems Inc ACIST Acist 1 42805 585858 080662 406628 5 Manifold Medical (24504) Systems Inc Medline Cath Cardinal 1 [id number] 140797 58195 845789 5 Pack Health ([id number]) Bag Decanter Microtek 1 2001S 065465 41502 085734 5 () Medical Inc. DIAGNOSTIC St Petros 1 303717 491305 916626 375943 30 WIRE .035 260cm J wire (051664) INFLATOR Merit 1 VY0947 282073 795468 652420 15 [facility] BasixCompak (PV9715) SHEATH 6FR Terumo 1 EIS840 456255 806743 073097 40 [place] (DAU198) IV CATHETER B. Michaels 1 [id number] 077917 240900 239402 5 20g GUIDE 6FR Cardinal 1 [id number] 928187 007177 160069 10 XBLAD 3.5 Health catheter ([id number]) CHOICE PT [place] 1 [id number] 740418 387624 733964 5 Extra Scientific Support 182cm wire ([id number]) INTEGRITY RX Medtronic 1 [id number] 096499 415162 054568 5 [id number] 3.0 x 15 stent ([id number]) GUIDE 6FR XB Cardinal 1 [id number] 224064 882118 348139 2 4.0 catheter Health ([id number]) EUPHORA 2.0 Medtronic 1 [id number] 876839 558782 822603 5 [id number] x 15 Balloon ([id number]) INTEGRITY RX Medtronic 1 [id number] 604915 702205 662160 5 [id number] 2.5 x 08 stent ([id number]) EXOSEAL 6Fr Cardinal 1 EX600 731187 483093 192403 10 (EX600) Health Signature Audit [place] Stage Time Signature Unsigned Intra-Procedure 07/15/2017 Rakan Ramsey 12:21:23 PM RT(R) Signatures Monitor : Rakan Ramsey RT Signature : Date : Time : [facility] [address] [place] [address]
[2017-07-13 14:41] LABS: BASOPHILS 0.4 % (0-2); EOSINOPHILS 7.1 % (0-7); HEMATOCRIT 41.2 % (42.0-54.0); HEMOGLOBIN 14.4 g/dL (13.5-17.5); IMMATURE GRANULOCYTES 0.2 % (0-5); LYMPHOCYTES 22.2 % (15-50); MCH 31.6 pg (26.0-34.0); MCV 90.4 fL (80.0-100.0); MEAN PLATELET VOLUME 10.4 fL (7.4-10.4); MONOCYTES 8.6 % (2-11); NEUTROPHILS 61.5 % (40-80); PLATELET COUNT 149 10x3/uL (130-400); RBC 4.56 10x6/uL (4.20-6.10); RDW 13.4 % (11.5-14.5); WBC 9.2 10x3/uL (4.8-10.8)
[2017-07-13 15:18] LABS: ALBUMIN 3.9 g/dL (3.4-5.0); ALKALINE PHOSPHATASE 100 U/L (46-116); ALT (SGPT) 59 U/L (10-68); BILIRUBIN - TOTAL 0.81 mg/dL (0.2-1.3); CALC OSMOLALITY 282 mosm/kg (275-300); CHLORIDE - SERUM 104 mmol/L (98-107); CREATININE - SERUM 0.9 mg/dL (0.6-1.3); GLUCOSE 91 mg/dL (74-106); POTASSIUM - SERUM 3.4 mmol/L (3.5-5.1); PROTEIN - SERUM 7.5 g/dL (6.4-8.2); SODIUM 143 mmol/L (136-145); UREA NITROGEN 8 mg/dL (7-18); eGFR NON AFRICAN AMERICAN > 90 mL/min (90-120)
[2017-07-13 15:30] LABS: CHOL - HDL RATIO 4.6 ratio (2.3-4.9); CHOLESTEROL, TOTAL 142 mg/dL (0-200); CKMB 14.4 U/L (0.0-3.6); CREATINE KINASE 526 UL (21-232); HDL CHOLESTEROL 31 mg/dL (32-96); LDL CHOLESTEROL 72 mg/dL (0-100); LDL-HDL RATIO 2.3 ratio (1.5-3.5); TRIGLYCERIDE 195 mg/dL (30-200)
[2017-07-13 15:32] LABS: TROPONIN-I < 0.017 ng/mL (0.000-0.060)
--- NOTE | 2017-07-13 16:08 | NUR ---
57/Y/O M ADMITTED TO ER. WITH SUB C/O EXERTIONAL AND RESTING DYPSNEA. CURRENT SPO2 96% FIO2 21%. FAINT RIGHT LOWER LOBULAR EXP CRACKLES NOTED. CLEAR AND DIM TO ALL OTHER ANTERIOR GARZA OF AUSCULTATION. SUBJECT EXP PAIN NOTED. PT TOLERATED TX WELL
--- NOTE | 2017-07-13 18:15 | NUR ---
RECEIVED PT TO ROOM 2118 VIA W/C AAOX4 RESP UNLABORED SKIN W/D C/O CHEST PAIN 02/08 MEDICATED IN ER 1 1/2 HOUR AGO WILL CONTINUE TO MONITOR
[2017-07-13] MEDS ORDERED: CYCLOBENZAPRINE10 MG PO (18:30)
[2017-07-13] MEDS ORDERED: PROVENTIL/2.5 MG/3 M INH (18:32)
[2017-07-13 18:40] VITALS: BP 112/74; Ht 180.3 cm; Wt 94.2 kg
--- NOTE | 2017-07-13 19:20 | NUR ---
PT RESTING IN BED. C/O PAIN AND ASKS FOR PAIN MEDS. PT IS ON ROOM AIR AND HAS AN IV IN LEFT HAND S/L. PT ALSO ASKS FOR HOME MEDS TO BE STARTED. DENIES ANY OTHER NEEDS. WILL CHECK WITH CARDIAC FOR MEDS.
--- NOTE | 2017-07-13 20:30 | NUR ---
DR RENTERIA PAGENelson. DEXTER STATED RESTART HOME MEDS. HOME MEDS RESTARTED. PT NOTIFIED. DENIES ANY OTHER NEEDS. NO S/S OF DISTRESS. BED LOW AND CALL LIGHT IN REACH. WILL CPOC
[2017-07-13 21:29] VITALS: BP 102/64
--- NOTE | 2017-07-14 00:20 | NUR ---
PT RESTING IN BED. WENT OVER HEART CATHS AND PT SIGNED CONSENTS. PT DENIES ANY QUESTIONS OR CONCERNS. PAIN IS BEING MANAGED. PT DENIES ANY NEEDS AT THIS TIME NO S/S OF DISTRESS WILL CPOC
[2017-07-14 00:48] VITALS: BP 103/68
[2017-07-14 05:25] VITALS: BP 94/64
--- NOTE | 2017-07-14 06:27 | NUR ---
PT ASLEEP. RESPIRATIONS EVEN AND UNLABORED. AROUSES TO VERBAL STIMULI. DENIES ANY NEEDS. NO S/S OF DISTRESS. BED LOW AND CALL LIGHT IN REACH. WILL CPOC
--- NOTE | 2017-07-14 07:30 | NUR ---
ASSESSMENT DONE. DENIES NEEDS.
[2017-07-14 08:05] VITALS: BP 108/69
--- NOTE | 2017-07-14 09:30 | NUR ---
TO TELEVISION ACTOR PER BED
--- NOTE | 2017-07-14 10:15 | NUR ---
RECIVED FROM FILM EXAMINER PER BED. TR-BAND TO RT WRIST.
[2017-07-14 11:34] VITALS: BP 100/69
--- NOTE | 2017-07-14 12:29 | NUR ---
RESP UL ON . IV PATENT. CALL LIGHT IN REACH. WILL CONT. PLAN OF CARE.
--- NOTE | 2017-07-14 14:15 | NUR ---
TR-BAND REMOVED
[2017-07-14 15:43] VITALS: BP 116/74
--- NOTE | 2017-07-14 17:10 | NUR ---
WITHOUT CHANGES OR DISTRESS NOTED AT THIS TIME. DENIES NEEDS
[2017-07-15] VITALS: BP 102/61
[2017-07-15 04:00] VITALS: BP 99/63
--- NOTE | 2017-07-15 04:36 | NUR ---
CABLE INSTALLER REPAIRER AT BEDSIDE TO OBTAIN VITALS, CALL LIGHT IN REACH. WILL CONTINUE WITH PLAN OF CARE.
[2017-07-15 08:46] VITALS: BP 102/69
--- NOTE | 2017-07-15 11:40 | NUR ---
PRE-OPS GIVEN. TO CATH LA BY BED.
[2017-07-15 12:07] VITALS: BP 97/47
--- NOTE | 2017-07-15 12:19 | HP ---
PATIENT: LELIA ROBLERO MEDICAL RECORD: [id number] ACCOUNT: [id number] LOCATION:[address] : 62 ADMISSION DATE: 07/13/17 HISTORY AND PHYSICAL EXAMINATION ADMITTING DIAGNOSES: 1. Chest pain, compatible with angina. 2. Smoking history. 3. Family history of coronary artery disease. HISTORY OF PRESENT ILLNESS: Mr. Roblero has not had a past history of coronary artery disease. He has been having 3 days of chest pressure. It is a very typical angina, like a squeezing sensation when he tries to do any exertion, even walking across the room. This is the third time he has been to the Emergency Room for this. His CK and CK-MB are elevated. Troponin is within normal limits. EKG is with nonspecific ST-T abnormalities. PHYSICAL EXAMINATION: GENERAL APPEARANCE: Well-nourished, well-developed, appears stated age. Level of distress, comfortable. PSYCHIATRIC: Mental status, alert, normal affect. Orientation, oriented to time, place and person. EYES: Lids and conjunctiva, noninjected. No discharge, no pallor. ENT: Lips, teeth, gums, normal dentition. Oropharynx, no cyanosis, no pallor. NECK: Carotid arteries, bilateral normal upstroke, no bruits, no thrills. JUGULAR VEINS: No jugular venous pressure or distention. CERVICAL LYMPH NODES: Nontender, nonenlarged. THYROID: Not enlarged. Nontender. No nodules. LUNGS: Respiratory effort, unlabored. CHEST: Normal curvature. No thoracic deformity. No chest wall tenderness. Percussion, resonant. Auscultation, clear. No wheezes, no rales, no rhonchi. CARDIOVASCULAR: Precordial exam, nondisplaced. No heaves or pericardial thrills. Rate and rhythm, regular. Heart sounds, normal S1, normal S2. No S3, no gallop, no rub. Systolic murmur, not heard. Diastolic murmur, not heard. EXTREMITIES: No cyanosis, no edema. Peripheral pulses, full and equal in all extremities, except as noted. No bruits appreciated. ABDOMEN: Soft, nondistended. Normal aorta. No bruit. Nontender. No masses. Liver, nontender, no hepatomegaly. Spleen, nontender, no splenomegaly. MUSCULOSKELETAL: No joint tenderness. No joint swelling. No erythema. NEUROLOGICAL: Normal gait, normal strength, normal tone. SKIN: Warm and dry. REVIEW OF SYSTEMS: The patient reports easy bruising but reports no swollen glands. The patient reports no fever, no night sweats, no significant weight gain, no significant weight loss. No significant exercise tolerance. The patient reports no dry eyes, no irritation, no vision change. Patient reports no difficulty hearing and no ear pain. Patient reports no frequent nose bleeds or nose and sinus problems. Patient reports on arm pain on exertion. No shortness of breath while lying down. No history of heart murmur. Patient reports no cough, no wheezing or coughing up blood. Patient reports no abdominal pain, no vomiting. Normal appetite. No diarrhea and not vomiting blood. No nausea and no constipation. Patient reports no incontinence. No difficulty urinating. No hematuria. No increased frequency. Patient reports no muscle aches. No weakness, no arthralgias, no back pain. No swelling of the extremities. Patient reports no abnormal mole, no jaundice, no rashes. Reports HISTORY AND PHYSICAL [id number] LELIA ROBLERO no loss of consciousness. No weakness and no numbness. No seizures, dizziness, or headaches. The patient reports no depression, no sleep disturbance, feeling safe in a relationship and no alcohol abuse. Patient reports on fatigue. Reports no runny nose or sinus pressure. No itching, no hives, and no frequent sneezing. OVERALL IMPRESSION: Chest pain, compatible with angina. Due to the continued nature of this, we will proceed with coronary angiography. Further care depends upon findings of the angiography. TRANSINT:[id number] Voice Confirmation ID: [id number] DOCUMENT ID: [id number] ADALI VELÁZQUEZ MD at 1219 CC: [id number] DICTATION DATE: 07/13/17 1617 REGENERATOR OPERATOR: 07/13/17 1711 ADM IN [place] [id number] [place] [address]
--- NOTE | 2017-07-15 12:19 | OP ---
PATIENT NAME: LELIA ROBLERO MEDICAL RECORD: [id number] :62 LOCATION:D.M2 D.2119 ADMISSION DATE:07/13/17 SURGEON: ADALI VELÁZQUEZ MD DATE OF OPERATION: 07/14/2017 PROCEDURES: 1. PTCA stent LAD. 2. Intravascular ultrasound of the LAD. 3. Left heart catheterization. 4. Selective coronary angiography. 5. Left ventriculogram. INDICATION: Angina and coronary artery disease. PROCEDURE IN DETAIL: After informed consent was obtained and after detailed explanation of risks, benefits as well as alternative therapies, the patient elected to proceed with angiogram and angioplasty. The right radial area was prepped and draped in normal sterile fashion. The right radial artery was cannulated via modified Seldinger technique with placement of 6-Maltese sheath. All catheters exchanged through this sheath. FINDINGS: The left ventriculogram was performed in the standard 30-degree DAUGHERTY view reveals good cardiac wall motion throughout all segments. Overall ejection fraction estimated at 60%. SELECTIVE CORONARY ANGIOGRAPHY: 1. Left main showed no significant angiographic disease. 2. Left anterior descending has greater than 80% stenosis in the proximal vessel confirmed by intravascular ultrasound. 3. Left circumflex has 80% stenosis in the mid vessel. 4. Right coronary has moderate irregularities, but no flow-limiting stenosis. PTCA STENT OF THE LAD: The stent used is a 3.0 x 22 mm Integrity taken to 17 atmospheres. Result was 0% residual stenosis. OVERALL IMPRESSION: Successful percutaneous transluminal coronary angioplasty stent of the left anterior descending going from 80% initial stenosis to 0% residual plan for PTCA stent of the left circumflex in the near future. TRANSINT:[id number] Voice Confirmation ID: [id number] DOCUMENT ID: [id number] ADALI VELÁZQUEZ MD at 1219 CC: [id number] DICTATION DATE: 07/14/17 1000 RN ER: 07/14/17 1509 ADM IN [place] [id number] [place] [id number]
--- NOTE | 2017-07-15 12:38 | NUR ---
BACK FROM UX DESIGN LEAD. VS WNL. RIGHT GROIN STABLE WITHOUT BLEEDING OR HEMATOMA NOTED. WILL MONITOR.
[2017-07-15] MEDS ORDERED: PLAVIX75 MG PO (12:41)
[2017-07-15] MEDS ORDERED: ASPIRIN81 MG PO (12:41)
--- NOTE | 2017-07-15 16:38 | NUR ---
BED REST UP. GROIN STABLE.
--- NOTE | 2017-07-15 17:58 | NUR ---
IV AND TELEMETRY DCD. DC PLANS GIVEN. UNDERSTANDING VOICED. ESCORTED TO CAR.
--- NOTE | 2017-07-28 15:46 | OP ---
PATIENT NAME: LELIA ROBLERO MEDICAL RECORD: [id number] :62 LOCATION:[place] ADMISSION DATE: SURGEON: ADALI VELÁZQUEZ MD DATE OF OPERATION: 07/15/2017 PROCEDURES: 1. PTCA stent of left circumflex. 2. Selective coronary angiography. INDICATION: Angina and coronary artery disease. PROCEDURE IN DETAIL: After informed consent was obtained and after a detailed explanation of the risks, benefits as well as alternative therapies, the patient elected to proceed with angiogram and angioplasty. The right femoral area is prepped and draped in normal sterile fashion. The right femoral artery was cannulated via modified Seldinger technique with placement of 6-Persian sheath. All catheters exchanged through this sheath. FINDINGS: Left circumflex has 80% stenosis at the bifurcation affecting both branches of this. It was addressed with a 3.0 x 15 mm and 2.5 x 8 both Integrity stents. Result was 0% residual stenosis. OVERALL IMPRESSION: Successful percutaneous transluminal coronary angioplasty stent of the left circumflex going from 80% initial stenosis to 0% residual. TRANSINT:[id number] Voice Confirmation ID: [id number] DOCUMENT ID: [id number] ADALI VELÁZQUEZ MD at 1546 CC: [id number] DICTATION DATE: 07/15/17 1258 DEVELOPMENT SPECIALIST: 07/15/17 1359 DEP CLI 07/15/[address] [address]
--- NOTE | 2017-07-28 15:46 | DS ---
PATIENT:LELIA ROBLERO :62 MEDICAL RECORD: [id number] DISCHARGE SUMMARY ADMISSION DATE: 07/13/17 DISCHARGE DATE: 07/15/17 DISCHARGE DIAGNOSES: 1. Angina. 2. Coronary artery disease. 3. PTCA and stent of LAD and left circumflex this admission. HISTORY AND HOSPITAL COURSE: This is a gentleman, who presents with anginal symptomatology, found to have significant disease of the LAD and circumflex. Underwent successful PTCA and stent of above territories. Discharged home with the addition of aspirin and Plavix to his medical regimen. He will follow up with [facility] in 1 month. TRANSINT:[id number] Voice Confirmation ID: [id number] DOCUMENT ID: [id number] ADALI VELÁZQUEZ MD at 1546 CC: [id number] DICTATION DATE: 07/15/17 1257 DIRECTOR SUMMER SESSIONS: 07/16/17 0859 [facility] CLI 07/15/17 [place] [id number] [place] [address]
== END 2017-07-15 17:59 | disposition home or self-care (01) ==
LOC: OBSVTIME → D.ER 14:04 → D.OPS 14:04 → D.ER 16:22 → D.M2 16:22 → OBSVTIME 16:22 → EDSTATUS 07-14 14:00 → D.M2 07-15 17:59 → D.OPS 07-15 17:59
PROVIDERS: Emergency Medicine
DX: I25.119 Atherosclerotic heart disease of native coronary artery with unspecified angina pectoris (principal); Z72.0 Tobacco use

== ENCOUNTER 2017-09-07 16:15 | Observation (INO) | payer MEDICARE ==
[~2017-09-07] VITALS: Ht 180.3 cm
--- NOTE | ~2017-09-07 | HEMODYNAMI ---
PATIENT:LELIA ROBLERO MEDICAL RECORD: [id number] : 62 LOCATION:[place] [address] ADMISSION DATE: 09/07/17 Generatedon:09/08/201711:55 Patient name: LELIA ROBLERO Patient #: [id number] SSN: [id number] : 1960 Date of study: 09/08/2017 Page: Of Hemodynamic Procedure Report Patient Data Patient Demographics Procedure consent was obtained First Name: LELIA Gender: Male Last Name: OSBALDO : 1960 Patient #: [id number] Age: 57 year(s) Race: SSN: [id number] Additional ID: [id number] Contact details Address: [address] [place] [address] State: [place]: [facility] [place] Zip code: [address] Past Medical History Allergies: No known allergies Admission Admission Data Admission Date: 09/07/2017 Admission Time: 19:57 Room #: [facility] Procedure Procedure Types Cath Procedure Diagnostic Procedure [facility] w/Coron[facility] Procedure Description Procedure Date Procedure Date: 09/08/2017 Procedure Start Time: 11:44 Procedure End Time: 11:55 Procedure Staff Name Function Roger Rhodes MD Performing Physician Ham Hinds RT Monitor Basilia Palmer RT Scrub Raymundo Elizabeth RN Nurse Belén Phipps RN Nurse Procedure Data Cath Procedure Fluoroscopy Diagnostic fluoroscopy Total fluoroscopy Time: 1.8 time: 1.8 min min Diagnostic fluoroscopy Total fluoroscopy dose: 483 dose: 483 mGy mGy Contrast Material Contrast Material Type Amount (ml) Isovue 300 39 Entry Location Entry Primary Successful Side Size Upsize Upsize Entry Closure Christianson ccessful Closure Location (Fr) 1 (Fr) 2 (Fr) Remarks Device Remarks Radial Right 6 Fr Mechanical artery Short Compression Estimated blood loss: 10 ml Diagnostic catheters Device Type Used For End Catheter Placement DIAGNOSTIC Roxanne 5Fr Procedure catheter ([id number]) Procedure Complications No complications Procedure Medications Medication Administration Route Dosage 0.9% NaCl I.V. 100 ml/hr Oxygen NC 2 l/min Lidocaine 2% added to field 20 Heparin Flush Bag added to field 2 bags (1000units/500ml NS) Plavix P.O. 300 mg Benadryl I.V. 50 mg Radial Cocktail added to field 1 syringe (Verapomil 2mg/Nitro 400mcg/Heparin 1500units) Versed I.V. 2 mg Fentanyl I.V. 50 mcg Hemodynamics Rest Heart Rate: 75 (bpm) Pressure Samples Time Site Value (mmHg) Purpose Heart Use Rate(bpm) 11:46 LV 136/-2,15 EDP 87 11:47 AO 112/85(98) Pullback 93 11:47 LV 96/12,23 Pullback 93 11:48 AO 97/75(85) Snapshot 90 Gradients Valve Time Site 1 Site 2 Mean SEP/DFP Peak To Heart Use (mmHg) (sec/min) Peak Rate (mmHg) (bpm) Aortic 11:47 LV AO 0 93 96/12,23 112/85(98) Calculations Valve P-P Mean Valve Index Valve Source Name Gradient Area Flow (cm2) Aortic 0 0 Snapshots Pre Cath Intra NCS Post Cath Vital Signs Time Heart Resp SPO2 etCO2 NIBP Rhythm Pain Sedation Rate (ipm) (%) (mmHg) (mmHg) Status Level (bpm) 11:29:43 73 19 98 0 113/78(88) NSR 0 (11) 10(A) , No pain 11:33:49 77 16 100 0 117/79(95) NSR 0 (11) 10(A) , No pain 11:37:55 78 14 100 0 116/79(91) NSR 0 (11) 10(A) , No pain 11:42:01 79 16 96 0 117/82(94) NSR 0 (11) 9(A) , No pain 11:46:13 80 14 95 0 120/79(90) NSR 0 (11) 9(A) , No pain 11:50:18 83 15 97 0 104/69(88) NSR 0 (11) 10(A) , No pain 11:54:24 79 15 100 0 106/68(81) NSR 0 (11) 10(A) , No pain Medications Time Medication Route Dose Verified Delivered Reason Notes Effectiveness by by 11:25:21 0.9% NaCl I.V. 100ml/hr Roger Pricey used for Carmelo concepcion MD 11:25:32 Oxygen NC 2 l/min Roger Belén Per Carmelo Phipps RN physician 11:25:40 Lidocaine 2% added 20ml Roger Roger for local to vial Carmelo Rhodes MD anesthetic field 11:25:46 Heparin Flush added 2 bags Roger Roger used for Bag to Carmelo Rhodes MD procedure (1000units/500ml field SILVERIO NS) 11:26:24 Plavix P.O. 300 mg Roger Buffie for Carmelo Elizabeth RN antiplatelet MD therapy 11:26:47 Benadryl I.V. 50 mg Roger Belén used for Carmelo concepcion MD 11:30:28 Radial Cocktail added 1 Roger Roger for (Verapomil to syringe Carmelo Rhodes MD vasodilation 2mg/Nitro field SILVERIO 400mcg/Heparin 1500units) 11:37:04 Versed I.V. 2 mg Roger Belén for sedation Carmelo Phipps RN, MD 11:37:13 Fentanyl I.V. 50 mcg Roger Belén for sedation Carmelo Phipps RN, MD Procedure Log Time Note 11:00:54 Raymundo Elizabeth RN sent for patient. Start room use. 11:12:55 Time tracking: Regular hours 11:12:59 Plan of Care:Hemodynamics will remain stable., Cardiac rhythm will remain stable., Comfort level will be maintained., Respiratory function will remain adequate., Patient/ family verbilizes understanding of procedure., Procedure tolerated without complication., Recovers from procedure without complications.. 11:25:21 0.9% NaCl 100ml/hr I.V. was administered by Belén Phipps RN; used for procedure; 11:25:32 Oxygen 2 l/min NC was administered by Belén Phipps RN; Per physician; 11:25:34 Patient received from PCU to CCL 2 Alert and oriented. Tansferred to table in Supine position. 11:25:40 Lidocaine 2% 20ml vial added to field was administered by Roger Rhodes MD; for local anesthetic; 11:25:42 Warm blankets applied, and elliot hugger turned on for patient comfort. 11:25:43 Correct patient and procedure confirmed by team. ::44 Signed procedure consent form obtained from patient. ::44 ECG and BP/O2 sat monitors applied to patient. 11:25:46 Heparin Flush Bag (1000units/500ml NS) 2 bags added to field was administered by Roger Rhodes MD; used for procedure; 11:26:24 Plavix 300 mg P.O. was administered by Raymundo Elizabeth RN; for antiplatelet therapy; 11:26:47 Benadryl 50 mg I.V. was administered by Belén Phipps RN; used for procedure; 11:28:44 Vital chart was started 11:30:28 Radial Cocktail (Verapomil 2mg/Nitro 400mcg/Heparin 1500units) 1 syringe added to field was administered by Roger Rhodes MD; for vasodilation; 11:30:33 Baseline sample Acquired. 11:30:37 Rhythm: sinus rhythm 11:30:49 H&P Date Dictated: 09/07/2017 Within 30 days and on chart.. 11:30:50 Pre-procedure instructions explained to patient. 11:30:51 Pre-op teaching completed and patient verbalized understanding. 11:31:07 Family unavailable. 11:31:10 Patient NPO since Breakfast. 11:31:16 Patient allergic to No known allergies 11:31:19 Is the patient allergic to Iodine/contrast media? No. 11:31:20 Is patient on blood thinner?Yes 11:31:27 ACC The patient was administered the following blood thiners within the last 24 hours: ACCBrilinta 11:31:30 Patient diabetic? No. 11:31:34 Previous problem with sedation/anesthesia? No ? 11:31:35 Snore? Yes 11:31:36 Sleep apnea? No 11:31:37 Deviated septum? No 11:31:37 Opens mouth fully? Yes 11:31:38 Sticks out tongue? Yes 11:31:48 Airway obstruction? Yes Asthma/COPD 11:31:52 Dentures? No ? 11:31:55 Modified Baldemar's test Ulnar < 7 seconds 11:33:08 Patient pain scale 6/10 ?. 11:33:16 IV patent on arrival in right antecubital with 0.9% NaCl at [facility]. 11:33:59 Lab results completed and on chart. 11:34:03 Right Radial & Right Groin area was prepped with chlora-prep and draped in sterile fashion 11:34:04 Alarms reviewed by R. N. 11:34:04 Sharps counted by scrub and verified by R.N. 11:34:06 Use device set Radial Dx or PCI 11:34:08 MBrace Wrist Support ([id number]) opened to sterile field. 11:34:09 ACIST Hand Control (85307) opened to sterile field. 11:34:09 ACIST Manifold (81697) opened to sterile field. 11:34:11 Tegaderm 4 x 4 (1626W) opened to sterile field. 11:34:12 ACIST Syringe (05820) opened to sterile field. 11:34:12 Medline Cath Pack ([id number]) opened to sterile field. 11:34:13 Bag Decanter (2002S) opened to sterile field. 11:34:17 DIAGNOSTIC WIRE .035 260cm J wire (798438) opened to sterile field. 11:34:18 SHEATH 6FR Slender ([id number]) opened to sterile field. 11:34:24 Physician arrived 11:34:25 --------ALL STOP TIME OUT------ 11:34:26 Final Timeout: patient, procedure, and site verified with staff and physician. All members of the team are in agreement. 11:34:27 Right Radial & Right Groin site verified by team. 11:34:31 Physical assessment completed. ASA score P 2 - A patient with mild systemic disease as per Roger Rhodes MD. 11:34:36 Sedation plan: IV Moderate Sedation Medication:Versed, Fentanyl 11:37:04 Versed 2 mg I.V. was administered by Belén Phipps RN; for sedation; 11:37:04 IV Extension Set opened to sterile field. 11:37:13 Fentanyl 50 mcg I.V. was administered by Belén Phipps RN; for sedation; 11:44:20 Procedure started. 11:44:21 Full Disclosure recording started 11:44:33 Local anesthetic to right radial artery with Lidocaine 2% by Roger Rhodes MD.INITIAL ACCESS ONLY 11:45:29 A 6 Fr Short sheath was inserted into the Right Radial artery 11:45:45 A DIAGNOSTIC Roxanne 5Fr catheter ([id number]) was advanced over the wire and used for Procedure. 11:47:48 LV angiography performed. 11:47:50 LV gram done using DAUGHERTY 11:47:55 EF : 60 % 11:47:57 LV hemodynamics recorded. 11:48:00 Injector settings: Ml/sec: 12, Volume: 8, 11:48:35 RCA angiography performed. 11:49:44 LCA angiography performed. 11:50:57 Catheter removed. 11:51:09 TR BAND Standard ([id number]) opened to sterile field. 11:51:21 Sheath removed intact; hemostasis achieved with Mechanical Compression to the Right Radial artery. 11:51:23 Procedure ended.(Physican Out) 11:51:36 Fluoroscopy time 01.80 minutes. 11:51:42 Flurop Dose total: 483 11:51:42 Fluoroscopy dose: 483 mGy 11:51:53 Contrast amount:Isovue 300 39ml. 11:52:04 Sharps counted by scrub and verified by R.N. 11:52:07 TR band inflated with 12cc of air. 11:52:08 Insertion/operative site no bleeding no hematoma. 11:52:20 Post Procedure Pulses reassessed and unchanged 11:52:23 Post-procedure physical assessment completed. ASA score P 2 - A patient with mild systemic disease as per Roger Rhodes MD. 11:52:25 Post procedure rhythm: unchanged. 11:52:34 Estimated blood loss: 10 ml 11:52:36 Post procedure instruction explained to patient.Patient verbalizes understanding. 11:52:37 Patient needs reinforcement of post procedure teaching. 11:52:49 Procedure and supply charges have been captured, reviewed, submitted and are correct. 11:53:03 Procedure Complication : No complications 11:54:49 Vital chart was stopped 11:54:50 See physician's report for complete and final results. 11:54:54 Report given to PCU. 11:54:57 Patient transfered to PCU with Bed. 11:54:59 Procedure ended. 11:54:59 Full Disclosure recording stopped 11:55:02 End room use (Document Last) Device Usage Item Name Manufacture Quantity Catalog Hospital Part Current Minima l Lot# / Number Charge Number Stock Stock Serial# Code MBrace Wrist Advanced 1 140-0250-00 [id number] 92933 451765 5 Support Vascular ([id number]) Dynamics ACIST Hand Acist 1 94187 614847 236763 255514 5 Control Medical (09336) Systems Inc ACIST Acist 1 63038 362463 214525 238104 5 Manifold Medical (73823) Systems Inc Tegaderm 4 x 3M 1 1626W 857432 051449 850402 5 4 (1626W) ACIST Acist 1 67799 889628 390176 827356 20 Syringe Medical (97225) Systems Inc Medline Cath Cardinal 1 [id number] 127518 86210 127306 5 Pack Health ([id number]) Bag Decanter Microtek 1 2002S 164222 78672 603880 5 (2002S) Medical Inc. DIAGNOSTIC St Petros 1 406508 310686 394232 440278 30 WIRE .035 260cm J wire (704391) SHEATH 6FR Terumo 1 [id number] 390425 571343 296614 40 Slender ([id number]) IV Extension Hospira 1 16049-25 053700 45961 404898 5 Set DIAGNOSTIC Terumo 1 40-6352 987703 430134 958371 5 Roxanne 5Fr catheter (235427) TR BAND Terumo 1 [id number] 919522 756117 270946 40 Standard (NET36EAR) Signature Audit [place] Stage Time Signature Unsigned Intra-Procedure 09/08/2017 Ham Hinds 11:55:15 AM RT(R) Signatures Monitor : Ham Hinds RT Signature : Date : Time : [facility] [address] [place] [address]
[~2017-09-07 16:15] MED LIST changes: +ASPIRIN81 MG PO; +CYCLOBENZAPRINE10 MG PO; +PLAVIX75 MG PO; +PROVENTIL/2.5 MG/3 M INH
[2017-09-07 16:41] LABS: BASOPHILS 0.6 % (0-2); HEMATOCRIT 44.8 % (42.0-54.0); HEMOGLOBIN 15.4 g/dL (13.5-17.5); IMMATURE GRANULOCYTES 0.3 % (0-5); LYMPHOCYTES 23.4 % (15-50); MCH 31.6 pg (26.0-34.0); MCHC 34.4 g/dL (31.0-37.0); MONOCYTES 9.2 % (2-11); NEUTROPHILS 57.5 % (40-80); RBC 4.87 10x6/uL (4.20-6.10); WBC 7.9 10x3/uL (4.8-10.8)
[2017-09-07 17:05] LABS: PLATELET COUNT 218 10x3/uL (130-400)
[2017-09-07 17:06] LABS: APTT 23.9 SECONDS (22.8-39.4); INR 1.04 (0.85-1.17); PROTIME 13.2 SECONDS (11.6-15.0)
[2017-09-07 17:08] LABS: ALBUMIN 4.5 g/dL (3.4-5.0); ALKALINE PHOSPHATASE 126 U/L (46-116); ALT (SGPT) 43 U/L (10-68); BILIRUBIN - TOTAL 0.92 mg/dL (0.2-1.3); CALC OSMOLALITY 280 mosm/kg (275-300); CALCIUM 9.3 mg/dL (8.5-10.1); CARBON DIOXIDE 27.1 mmol/L (21.0-32.0); CHLORIDE - SERUM 104 mmol/L (98-107); CREATININE - SERUM 1.1 mg/dL (0.6-1.3); GLUCOSE 89 mg/dL (74-106); POTASSIUM - SERUM 3.8 mmol/L (3.5-5.1); PROTEIN - SERUM 8.5 g/dL (6.4-8.2); SODIUM 142 mmol/L (136-145); UREA NITROGEN 11 mg/dL (7-18); eGFR NON AFRICAN AMERICAN 73 mL/min (90-120)
[2017-09-07 17:18] LABS: CHOLESTEROL, TOTAL 135 mg/dL (0-200); CKMB 4.4 U/L (0.0-3.6); CREATINE KINASE 221 UL (21-232); HDL CHOLESTEROL 34 mg/dL (32-96); LDL CHOLESTEROL 73 mg/dL (0-100); LDL-HDL RATIO 2.1 ratio (1.5-3.5); TRIGLYCERIDE 144 mg/dL (30-200); TROPONIN-I < 0.017 ng/mL (0.000-0.060)
[2017-09-07 20:38] LABS: CKMB 2.7 U/L (0.0-3.6); CREATINE KINASE 165 UL (21-232)
[2017-09-07 20:43] LABS: TROPONIN-I < 0.017 ng/mL (0.000-0.060)
[2017-09-07] MEDS ORDERED: BRILINTA90 MG PO (21:55)
[2017-09-07] MEDS ORDERED: INCRUSE ELLI62.5 MCG INH (21:57)
[2017-09-08] VITALS: BP 115/65
[2017-09-08 02:20] VITALS: BP 115/65
[2017-09-08 03:34] LABS: BASOPHILS 0.8 % (0-2); EOSINOPHILS 8.9 % (0-7); HEMATOCRIT 39.5 % (42.0-54.0); HEMOGLOBIN 13.2 g/dL (13.5-17.5); IMMATURE GRANULOCYTES 0.2 % (0-5); LYMPHOCYTES 30.2 % (15-50); MCHC 33.4 g/dL (31.0-37.0); MCV 92.7 fL (80.0-100.0); MEAN PLATELET VOLUME 9.9 fL (7.4-10.4); MONOCYTES 9.6 % (2-11); NEUTROPHILS 50.3 % (40-80); RBC 4.26 10x6/uL (4.20-6.10); RDW 14.1 % (11.5-14.5); WBC 6.2 10x3/uL (4.8-10.8)
[2017-09-08 03:36] LABS: PLATELET COUNT 166 10x3/uL (130-400)
[2017-09-08 04:03] LABS: ALBUMIN 3.5 g/dL (3.4-5.0); ALKALINE PHOSPHATASE 89 U/L (46-116); ALT (SGPT) 37 U/L (10-68); BILIRUBIN - TOTAL 0.79 mg/dL (0.2-1.3); CALC OSMOLALITY 282 mosm/kg (275-300); CALCIUM 8.5 mg/dL (8.5-10.1); CHLORIDE - SERUM 105 mmol/L (98-107); CKMB 2.5 U/L (0.0-3.6); CREATINE KINASE 131 UL (21-232); GLUCOSE 102 mg/dL (74-106); MAGNESIUM - SERUM 2.2 mg/dL (1.8-2.4); PHOSPHOROUS 5.4 mg/dL (2.5-4.9); POTASSIUM - SERUM 3.9 mmol/L (3.5-5.1); PROTEIN - SERUM 6.8 g/dL (6.4-8.2); SODIUM 142 mmol/L (136-145); UREA NITROGEN 12 mg/dL (7-18); eGFR NON AFRICAN AMERICAN 82 mL/min (90-120)
[2017-09-08 04:04] LABS: TROPONIN-I < 0.017 ng/mL (0.000-0.060)
[2017-09-08 07:41] VITALS: BP 97/67
[2017-09-08 09:55] LABS: CKMB 1.9 U/L (0.0-3.6); CREATINE KINASE 112 UL (21-232); TROPONIN-I < 0.017 ng/mL (0.000-0.060)
[2017-09-08 11:39] VITALS: Ht 180.3 cm
[2017-09-08 16:09] VITALS: BP 101/68
== END 2017-09-08 17:04 | disposition home or self-care (01) ==
LOC: D.ER 16:15 → D.M2 19:57 → OBSVTIME 19:57 → D.M2 09-08 17:04
PROVIDERS: Family Medicine
DX: I25.110 Atherosclerotic heart disease of native coronary artery with unstable angina pectoris (principal); Z95.5 Presence of coronary angioplasty implant and graft; Z72.0 Tobacco use; E78.5 Hyperlipidemia, unspecified; I10 Essential (primary) hypertension; K21.9 Gastro-esophageal reflux disease without esophagitis; F32.9 Major depressive disorder, single episode, unspecified; F41.9 Anxiety disorder, unspecified

== ENCOUNTER 2017-09-12 18:21 | Observation (INO) | payer MEDICARE ==
[~2017-09-12] VITALS: Ht 180.3 cm; Wt 118.2 kg
--- NOTE | ~2017-09-12 | DS ---
PATIENT:LELIA ROBLERO :62 MEDICAL RECORD: [id number] DISCHARGE SUMMARY ADMISSION DATE: 09/12/17 DISCHARGE DATE: DISCHARGE DIAGNOSES: 1. Bronchitis. 2. Atypical chest pain. 3. Coronary artery disease. 4. Previous PTCA stent. HOSPITAL COURSE: Mr. Roblero presents with atypical chest pain, most likely from bronchitis, not from his coronary artery disease. He does have a history of coronary artery disease and previous cardiac stenting. He was discharged home. No change in his cardiovascular medications with the addition of Augmentin to his medical regimen. Follow up with [facility] as scheduled. TRANSINT:[id number] Voice Confirmation ID: [id number] DOCUMENT ID: [id number] ADALI VELÁZQUEZ MD CC: [id number] DICTATION DATE: 09/13/17 1023 VP AD PRODUCTS AND PLANNING: 09/13/17 1314 ADM IN [facility] [address] [place] [id number]
[~2017-09-12 18:21] MED LIST changes: +BRILINTA90 MG PO; +INCRUSE ELLI62.5 MCG INH
[2017-09-12 19:05] LABS: BASOPHILS 0.4 % (0-2); EOSINOPHILS 5.2 % (0-7); HEMATOCRIT 44.5 % (42.0-54.0); HEMOGLOBIN 15.3 g/dL (13.5-17.5); IMMATURE GRANULOCYTES 0.3 % (0-5); LYMPHOCYTES 23.1 % (15-50); MCH 31.4 pg (26.0-34.0); MCHC 34.4 g/dL (31.0-37.0); MCV 91.2 fL (80.0-100.0); MEAN PLATELET VOLUME 10.1 fL (7.4-10.4); MONOCYTES 10.9 % (2-11); NEUTROPHILS 60.1 % (40-80); PLATELET COUNT 199 10x3/uL (130-400); RBC 4.88 10x6/uL (4.20-6.10); RDW 13.8 % (11.5-14.5)
[2017-09-12 19:37] LABS: ALBUMIN 4.1 g/dL (3.4-5.0); BILIRUBIN - TOTAL 0.74 mg/dL (0.2-1.3); CARBON DIOXIDE 24.4 mmol/L (21.0-32.0); CREATININE - SERUM 1.5 mg/dL (0.6-1.3); POTASSIUM - SERUM 3.4 mmol/L (3.5-5.1); PROTEIN - SERUM 7.8 g/dL (6.4-8.2)
[2017-09-12 20:10] LABS: MAGNESIUM - SERUM 1.8 mg/dL (1.8-2.4); TROPONIN-I 0.029 ng/mL (0.000-0.060)
[2017-09-12 20:12] LABS: CHOL - HDL RATIO 4.1 ratio (2.3-4.9); CHOLESTEROL, TOTAL 136 mg/dL (0-200); CKMB 17.7 U/L (0.0-3.6); HDL CHOLESTEROL 33 mg/dL (32-96); LDL CHOLESTEROL 64 mg/dL (0-100); LDL-HDL RATIO 1.9 ratio (1.5-3.5); TRIGLYCERIDE 196 mg/dL (30-200)
[2017-09-12 21:52] LABS: CKMB 11.1 U/L (0.0-3.6); TROPONIN-I 0.029 ng/mL (0.000-0.060)
[2017-09-12 22:02] LABS: CREATINE KINASE 1511 UL (21-232)
[2017-09-13] MEDS ORDERED: SPIRIVA18 MCG INH (00:23)
[2017-09-13] MEDS ORDERED: PLAVIX75 MG PO (00:23)
[2017-09-13 00:53] VITALS: BMI 36.3
[2017-09-13 04:00] VITALS: BP 90/52
[2017-09-13 04:42] LABS: BASOPHILS 0 % (0-2); EOSINOPHILS 0.1 % (0-7); IMMATURE GRANULOCYTES 0.2 % (0-5); LYMPHOCYTES 8.1 % (15-50); MCH 30.8 pg (26.0-34.0); MCHC 33.3 g/dL (31.0-37.0); MCV 92.4 fL (80.0-100.0); MEAN PLATELET VOLUME 10.5 fL (7.4-10.4); MONOCYTES 0.8 % (2-11); NEUTROPHILS 90.8 % (40-80); PLATELET COUNT 178 10x3/uL (130-400); RBC 4.22 10x6/uL (4.20-6.10); RDW 13.9 % (11.5-14.5)
[2017-09-13 04:48] LABS: WBC 8.4 10x3/uL (4.8-10.8)
[2017-09-13 05:21] LABS: CALC OSMOLALITY 280 mosm/kg (275-300); CALCIUM 7.7 mg/dL (8.5-10.1); CARBON DIOXIDE 25.3 mmol/L (21.0-32.0); CHLORIDE - SERUM 104 mmol/L (98-107); CKMB 8.6 U/L (0.0-3.6); GLUCOSE 148 mg/dL (74-106); SODIUM 138 mmol/L (136-145); TROPONIN-I < 0.017 ng/mL (0.000-0.060); UREA NITROGEN 17 mg/dL (7-18)
[2017-09-13 05:24] LABS: CREATINE KINASE 1187 UL (21-232); POTASSIUM - SERUM 4.9 mmol/L (3.5-5.1); eGFR NON AFRICAN AMERICAN 82 mL/min (90-120)
[2017-09-13 07:50] VITALS: BP 90/63
[2017-09-13 08:49] VITALS: Ht 180.3 cm; Wt 118.2 kg
[2017-09-13 09:37] LABS: CKMB 8.3 U/L (0.0-3.6)
[2017-09-13 09:45] LABS: CREATINE KINASE 1015 UL (21-232); TROPONIN-I 0.016 ng/mL (0.000-0.060)
[2017-09-13 11:47] VITALS: BP 93/60
[2017-09-13] MEDS ORDERED: AUGMENTIN 500-11 TA1 PO (13:29)
== END 2017-09-13 14:36 | disposition home or self-care (01) ==
LOC: D.ER 18:21 → D.M2 23:42 → OBSVTIME 23:42 → D.M2 09-13 14:36
PROVIDERS: Emergency Medicine; Family Medicine
DX: J44.1 Chronic obstructive pulmonary disease with (acute) exacerbation (principal); J40 Bronchitis, not specified as acute or chronic; I10 Essential (primary) hypertension; E78.5 Hyperlipidemia, unspecified; I25.10 Atherosclerotic heart disease of native coronary artery without angina pectoris; Z95.5 Presence of coronary angioplasty implant and graft; Z87.891 Personal history of nicotine dependence

== ENCOUNTER 2017-09-14 20:25 | Emergency (ER) | payer MEDICARE ==
[2017-09-13 08:49] VITALS: BMI 36.3
[~2017-09-14 20:25] MED LIST changes: +AUGMENTIN 500-11 TA1 PO; +SPIRIVA18 MCG INH
[2017-09-14 21:12] LABS: BASOPHILS 0.2 % (0-2); EOSINOPHILS 2.2 % (0-7); HEMATOCRIT 39.5 % (42.0-54.0); HEMOGLOBIN 13.5 g/dL (13.5-17.5); IMMATURE GRANULOCYTES 0.3 % (0-5); LYMPHOCYTES 17.4 % (15-50); MCHC 34.2 g/dL (31.0-37.0); MCV 90.6 fL (80.0-100.0); MONOCYTES 10.2 % (2-11); NEUTROPHILS 69.7 % (40-80); PLATELET COUNT 184 10x3/uL (130-400); RBC 4.36 10x6/uL (4.20-6.10); RDW 13.8 % (11.5-14.5)
[2017-09-14 21:16] LABS: WBC 13.1 10x3/uL (4.8-10.8)
[2017-09-14 21:43] LABS: ALBUMIN 4.1 g/dL (3.4-5.0); ALKALINE PHOSPHATASE 81 U/L (46-116); ALT (SGPT) 43 U/L (10-68); BILIRUBIN - TOTAL 0.65 mg/dL (0.2-1.3); CARBON DIOXIDE 23.9 mmol/L (21.0-32.0); CHLORIDE - SERUM 102 mmol/L (98-107); CREATININE - SERUM 1.1 mg/dL (0.6-1.3); PROTEIN - SERUM 7.5 g/dL (6.4-8.2); SODIUM 137 mmol/L (136-145); UREA NITROGEN 20 mg/dL (7-18); eGFR NON AFRICAN AMERICAN 73 mL/min (90-120)
[2017-09-14 21:46] LABS: CALC OSMOLALITY 276 mosm/kg (275-300); GLUCOSE 90 mg/dL (74-106); POTASSIUM - SERUM 3.4 mmol/L (3.5-5.1)
[2017-09-14 21:53] LABS: CKMB 4.4 U/L (0.0-3.6); CREATINE KINASE 943 UL (21-232)
[2017-09-15 02:40] LABS: CKMB 4.5 U/L (0.0-3.6); CREATINE KINASE 783 UL (21-232); TROPONIN-I 0.019 ng/mL (0.000-0.060)
== END 2017-09-15 04:20 | disposition home or self-care (01) ==
LOC: D.ER 20:25
PROVIDERS: Emergency Medicine; Physician Assistant Medical
DX: R07.9 Chest pain, unspecified (principal); R00.0 Tachycardia, unspecified

== ENCOUNTER 2017-09-15 07:35 | Emergency (ER) | payer MEDICARE ==
[2017-09-13 08:49] VITALS: BMI 36.3
== END 2017-09-15 09:10 | disposition home or self-care (01) ==
LOC: D.ER 07:35
DX: M25.571 Pain in right ankle and joints of right foot (principal); R07.89 Other chest pain

== ENCOUNTER 2017-10-31 09:35 | Emergency (ER) | payer MEDICARE ==
[2017-09-13 08:49] VITALS: BMI 36.3
[2017-10-31 10:41] LABS: BASOPHILS 0.6 % (0-2); EOSINOPHILS 6.3 % (0-7); HEMATOCRIT 39.3 % (42.0-54.0); HEMOGLOBIN 13.5 g/dL (13.5-17.5); IMMATURE GRANULOCYTES 0.2 % (0-5); LYMPHOCYTES 26.2 % (15-50); MCH 31.2 pg (26.0-34.0); MCHC 34.4 g/dL (31.0-37.0); MCV 90.8 fL (80.0-100.0); MEAN PLATELET VOLUME 9.6 fL (7.4-10.4); MONOCYTES 14.5 % (2-11); NEUTROPHILS 52.2 % (40-80); PLATELET COUNT 171 10x3/uL (130-400); RBC 4.33 10x6/uL (4.20-6.10); RDW 13.4 % (11.5-14.5); WBC 4.6 10x3/uL (4.8-10.8)
[2017-10-31 10:56] LABS: ALBUMIN 3.8 g/dL (3.4-5.0); ALKALINE PHOSPHATASE 76 U/L (46-116); ALT (SGPT) 51 U/L (10-68); BILIRUBIN - TOTAL 0.81 mg/dL (0.2-1.3); CALC OSMOLALITY 277 mosm/kg (275-300); CALCIUM 8.6 mg/dL (8.5-10.1); CARBON DIOXIDE 24.6 mmol/L (21.0-32.0); CHLORIDE - SERUM 106 mmol/L (98-107); CREATININE - SERUM 0.9 mg/dL (0.6-1.3); GLUCOSE 107 mg/dL (74-106); POTASSIUM - SERUM 3.4 mmol/L (3.5-5.1); PROTEIN - SERUM 7.4 g/dL (6.4-8.2); SODIUM 140 mmol/L (136-145); UREA NITROGEN 10 mg/dL (7-18); eGFR NON AFRICAN AMERICAN > 90 mL/min (90-120)
[2017-10-31 11:03] LABS: TROPONIN-I < 0.017 ng/mL (0.000-0.060)
== END 2017-10-31 12:15 | disposition home or self-care (01) ==
LOC: D.ER 09:35
PROVIDERS: Physician Assistant
DX: J20.9 Acute bronchitis, unspecified (principal); R07.89 Other chest pain; Z86.79 Personal history of other diseases of the circulatory system; G40.909 Epilepsy, unspecified, not intractable, without status epilepticus; I45.10 Unspecified right bundle-branch block

== ENCOUNTER 2017-10-31 22:27 | Emergency (ER) | payer MEDICARE ==
[2017-09-13 08:49] VITALS: BMI 36.3
== END 2017-10-31 23:10 | disposition home or self-care (01) ==
LOC: D.ER 22:27
DX: S51.851A Open bite of right forearm, initial encounter (principal); Y04.1XXA Assault by human bite, initial encounter; Y93.89 Activity, other specified; Y92.019 Unspecified place in single-family (private) house as the place of occurrence of the external cause